=== PATIENT | female | born 1945 | race Two or more races ===

== ENCOUNTER 2018-10-07 14:03 | Emergency (ER) | payer MEDICARE, MEDICAID ==
[~2018-10-07] VITALS: Ht 167.6 cm; Wt 88.5 kg
[~2018-10-07 14:03] MED LIST: AMIT25TA52 PO; CARV3.122 PO; CLOP75TA15 PO; LISI10TA5 PO
--- NOTE | 2018-10-07 14:25 | NUR ---
C/O COUGH AND CONGESTION SINCE SATURDAY, -FEVER, PT STATED "I HAD A GREEN PHLEGM". DENIES SOB, N/V. NO ACUTE DISTRESS NOTED. TO BED 6, ON MONITOR, READY FOR EVAL. FAMILY AT BEDSIDE.
[2018-10-07] MEDS ORDERED: IPRATROPIUM NEB FS 0.5 MG/2.5 ML AMPUL.NEB NEB ONE (14:30)
[2018-10-07] MEDS ORDERED: IPRATROPIUM NEB FS 0.5 MG/2.5 ML AMPUL.NEB ONE (14:30)
[2018-10-07] MEDS ORDERED: ALBUTEROL FS 2.5 MG/3 ML VIAL.NEB CONTNEB ONE (14:30)
[2018-10-07] MEDS ORDERED: ALBUTEROL FS 2.5 MG/3 ML VIAL.NEB ONE (14:30)
--- NOTE | 2018-10-07 14:30 | NUR ---
RT AT BEDSIDE FOR BREATHING TX
[2018-10-07 14:38] LABS: BASOPHILS # (AUTO) 0.1 /CMM (0.0-0.2); BASOPHILS % (AUTO) 0.8 % (0.0-2.0); EOSINOPHILS % (AUTO) 10.6 % (0.0-6.0); HEMATOCRIT 36 % (33-45); LYMPHOCYTES # (AUTO) 2.2 /CMM (0.8-4.8); LYMPHOCYTES % (AUTO) 27.4 % (20.0-44.0); MEAN CORPUSCULAR HGB CONC 33 g/dl (31.0-36.0); MEAN CORPUSCULAR VOLUME 88 fL (82-100); MONOCYTES # (AUTO) 0.5 /CMM (0.1-1.30); MONOCYTES % (AUTO) 6.3 % (2.0-12.0); NEUTROPHILS # (AUTO) 4.5 /CMM (1.8-8.9); NEUTROPHILS % (AUTO) 54.9 % (43.0-81.0); PLATELET COUNT (AUTO) 328 /CMM (150-450); RED BLOOD CELL COUNT(AUTO) 4.11 MIL/uL (4.0-5.2); WHITE BLOOD COUNT (AUTO) 8.2 K/uL (4.3-11.0)
[2018-10-07 14:47] LABS: CALCIUM, SERUM 8.9 mg/dL (8.5-10.1); CARBON DIOXIDE 26 mmol/L (21-32); CHLORIDE 105 mmol/L (98-107); CREATININE 0.9 mg/dL (0.6-1.3); GLUCOSE 88 mg/dL (74-106); POTASSIUM 4.3 mmol/L (3.5-5.1); SODIUM SERUM 139 mmol/L (136-145); UREA NITROGEN, BLOOD 17 mg/dL (7-18)
[2018-10-07 14:57] LABS: B-TYPE NATRIURETIC PEPTIDE 151 PG/ML (0-125)
--- NOTE | 2018-10-07 15:38 | NUR ---
Patient discharged to home in stable condition. Written and verbal after care instructions given. Patient verbalizes understanding of instruction.
[2018-10-07 21:40] VITALS: BP 139/83
== END 2018-10-07 15:37 | disposition home or self-care (01) ==
LOC: ER 14:03
DX: J40 Bronchitis, not specified as acute or chronic (principal); I10 Essential (primary) hypertension; M79.7 Fibromyalgia; I45.10 Unspecified right bundle-branch block; Z86.73 Personal history of transient ischemic attack (TIA), and cerebral infarction without residual deficits
CPT/HCPCS: 36415; 71045-TC; 80048-TC; 83880; 84484-TC; 85025-TC

== ENCOUNTER 2019-02-04 17:57 | Emergency (ER) | payer MEDICARE, MEDICAID ==
[~2019-02-04] VITALS: Ht 167.6 cm; Wt 88.9 kg
[2019-02-04 18:10] VITALS: BP 140/88
--- NOTE | 2019-02-04 18:28 | NUR ---
Patient discharged to home in stable condition. Written and verbal after care instructions given. Patient verbalizes understanding of instruction.
== END 2019-02-04 18:28 | disposition home or self-care (01) ==
LOC: ER 17:59
DX: S80.862A Insect bite (nonvenomous), left lower leg, initial encounter (principal); S80.861A Insect bite (nonvenomous), right lower leg, initial encounter; S40.862A Insect bite (nonvenomous) of left upper arm, initial encounter; I10 Essential (primary) hypertension; M79.7 Fibromyalgia; M19.90 Unspecified osteoarthritis, unspecified site; Z87.01 Personal history of pneumonia (recurrent); Z86.73 Personal history of transient ischemic attack (TIA), and cerebral infarction without residual deficits; Z79.899 Other long term (current) drug therapy; W57.XXXA Bitten or stung by nonvenomous insect and other nonvenomous arthropods, initial encounter; Y93.89 Activity, other specified; Y92.89 Other specified places as the place of occurrence of the external cause; Y99.8 Other external cause status

== ENCOUNTER 2019-06-18 18:47 | Emergency (ER) | payer MEDICARE, OTHER ==
[~2019-06-18] VITALS: Ht 167.6 cm; Wt 86.2 kg
--- NOTE | 2019-06-18 19:12 | NUR ---
PT CAME TO THE ED C/O COUGH AND CONGESTION X 3 DAYS; + SPUTUM PRODUCTION; GREEN IN COLOR. -FEVER. PT AAOX4, RR EVEN AND UNLABORED ON RA W NAD NOTED. PT CONNECTED TO THE MONITOR AND POX.
--- NOTE | 2019-06-18 19:13 | NUR ---
CALLED RT FOR TX
--- NOTE | 2019-06-18 19:15 | NUR ---
REPORT RECEIVED FROM SURAJ RN FOR GAVIN
[2019-06-18] MEDS ORDERED: predniSONE 20 MG TABLET ONE (19:17)
[2019-06-18] MEDS ORDERED: ALBUTEROL FS 2.5 MG/3 ML VIAL.NEB NEB ONE ×2 (19:30→20:00)
[2019-06-18] MEDS ORDERED: predniSONE 20 MG TABLET PO ONE (19:30)
[2019-06-18] MEDS ORDERED: IPRATROPIUM NEB FS 0.5 MG/2.5 ML AMPUL.NEB NEB ONE ×2 (19:30→20:00)
[2019-06-18] MEDS ORDERED: ALBUTEROL FS 2.5 MG/3 ML VIAL.NEB ONE ×2 (19:39→20:35)
[2019-06-18] MEDS ORDERED: IPRATROPIUM NEB FS 0.5 MG/2.5 ML AMPUL.NEB ONE ×2 (19:39→20:35)
--- NOTE | 2019-06-18 19:48 | NUR ---
BREATHING TX IN PROGRESS
--- NOTE | 2019-06-18 20:05 | NUR ---
IV LINE ESTABLISHED RH 20 G. BLOOD COLLECTED AND SENT TO LAB
--- NOTE | 2019-06-18 20:05 | NUR ---
EKG AT BEDSIDE
[2019-06-18 20:09] LABS: BASOPHILS # (AUTO) 0.1 /CMM (0.0-0.2); BASOPHILS % (AUTO) 0.6 % (0.0-2.0); EOSINOPHILS % (AUTO) 2.8 % (0.0-6.0); HEMATOCRIT 36 % (33-45); HEMOGLOBIN 11.9 g/dL (11.5-14.8); LYMPHOCYTES # (AUTO) 2.5 /CMM (0.8-4.8); LYMPHOCYTES % (AUTO) 22.9 % (20.0-44.0); MEAN CORPUSCULAR HGB CONC 33 g/dl (31.0-36.0); MEAN CORPUSCULAR VOLUME 85 fL (82-100); MONOCYTES # (AUTO) 0.6 /CMM (0.1-1.30); MONOCYTES % (AUTO) 5.6 % (2.0-12.0); NEUTROPHILS # (AUTO) 7.3 /CMM (1.8-8.9); NEUTROPHILS % (AUTO) 68.1 % (43.0-81.0); PLATELET COUNT (AUTO) 284 /CMM (150-450); RED BLOOD CELL COUNT(AUTO) 4.24 MIL/uL (4.0-5.2); WHITE BLOOD COUNT (AUTO) 10.8 K/uL (4.3-11.0)
[2019-06-18 20:18] LABS: CALCIUM, SERUM 8.5 mg/dL (8.5-10.1); CREATININE 0.8 mg/dL (0.6-1.3); POTASSIUM 3.7 mmol/L (3.5-5.1)
--- NOTE | 2019-06-18 20:20 | NUR ---
RT CALLED FOR BREATHING TX
--- NOTE | 2019-06-18 20:36 | NUR ---
RT AT BEDSIDE
[2019-06-18 21:28] VITALS: BP 186/91
--- NOTE | 2019-06-18 21:29 | NUR ---
PER ER PT IS OKAY TO BED DISCHARGED W/ BP 186/94
== END 2019-06-18 21:46 | disposition home or self-care (01) ==
LOC: ER 19:07
DX: J20.9 Acute bronchitis, unspecified (principal); I10 Essential (primary) hypertension; M79.7 Fibromyalgia; M19.90 Unspecified osteoarthritis, unspecified site; Z86.73 Personal history of transient ischemic attack (TIA), and cerebral infarction without residual deficits; Z87.01 Personal history of pneumonia (recurrent); Z79.899 Other long term (current) drug therapy
CPT/HCPCS: 36415; 71045; 80048; 83880; 84484; 85025; 93005 ×2; 94640 ×2; 99285; J7512

== ENCOUNTER 2021-02-25 17:40 | Emergency (ER) | payer MEDICARE, OTHER ==
[~2021-02-25] VITALS: Ht 165.1 cm; Wt 86.2 kg
[~2021-02-25 17:40] MED LIST changes: +AMIT25TA10 PO; -AMIT25TA52 PO; +LISI10TA29 PO; -LISI10TA5 PO
[2021-02-25 17:55] VITALS: BP 149/80
--- NOTE | 2021-02-25 18:00 | NUR ---
BIBS FOR C/O RIGHT KNEE PAIN SINCE 3 DAYS AGO WHILE WALKING TO HER KITCHEN. RATES PAIN 7/10. NO APPARENT DEFORMITY NOTED. WILL CONTINUE TO MONITOR THE PATIENT.
--- NOTE | 2021-02-25 18:03 | NUR ---
[employer] PRINTER AT BEDSIDE
[2021-02-25] MEDS ORDERED: IBUPROFEN 600 MG TABLET PO ONE (19:00)
[2021-02-25] MEDS ORDERED: ACET-2605 PO (19:00)
[2021-02-25] MEDS ORDERED: IBUPROFEN 600 MG TABLET ONE (19:05)
--- NOTE | 2021-02-25 19:14 | NUR ---
Patient discharged to home in stable condition. Written and verbal after care instructions given. Patient verbalizes understanding of instruction.
== END 2021-02-25 19:14 | disposition home or self-care (01) ==
LOC: ER 17:44
DX: M25.561 Pain in right knee (principal); I10 Essential (primary) hypertension; I25.2 Old myocardial infarction; M79.7 Fibromyalgia; M19.90 Unspecified osteoarthritis, unspecified site; Z86.73 Personal history of transient ischemic attack (TIA), and cerebral infarction without residual deficits; Z79.899 Other long term (current) drug therapy
CPT/HCPCS: 73564-TC